=== PATIENT | male | born 1995 | race Two or more races ===

== ENCOUNTER 2023-11-21 11:38 | Inpatient (IN) ==
[2023-11-21] MEDS ORDERED: Lactated Ringers 1000 ml BAG 1,000 ML IV ONE (13:08)
[2023-11-21 13:34] LABS: ABS Lymphocytes 0.6 10^3/uL (1.0-4.8); ABS Monocytes 0.8 10^3/uL (0.0-1.1); ABS Neutrophils 7.6 10^3/uL (1.5-7.6); ABS Nucleated RBC 0.01 10^3/ul; Eosinophil % 0.4 %; Hematocrit 37.6 % (38-53); Lymphocyte % 6.3 %; Mean Corpuscular Hemoglobin 29.1 pg (27-33); Mean Corpuscular Hgb Conc 34.5 g/dL (31-36); Mean Corpuscular Volume 84.4 fL (80-97); Mean Platelet Volume 9.4 fL (7.5-11.2); Nucleated Red Blood Cells % 0.2 %/100WBC (0.0-0.8); Platelet Count 189 10^3/uL (150-450); Red Blood Count 4.45 10^6/uL (4.06-5.63); Red Cell Distribution Width 13.3 % (12-17); White Blood Count 8.9 10^3/uL (3.6-10.2)
[2023-11-21 13:57] LABS: Albumin 4.4 g/dL (3.2-5.2); Albumin/Globulin Ratio 1.1 (1-3); C Reactive Protein 208.28 mg/L (<8.01); Calcium 9.2 mg/dL (8.6-10.3); Creatinine, Serum 1.02 mg/dL (0.67-1.17); Globulin 3.9 g/dL (2-4); Potassium 3.6 mmol/L (3.5-5.0); Total Bilirubin 0.9 mg/dL (0.2-1.0); Total Protein 8.3 g/dL (6.4-8.9); eGFR CKD-EPI 101.4 (>60)
[2023-11-21 14:00] LABS: Activated Partial Thrombo Time 32.4 seconds (26.0-38.0); INR 1.16 (0.83-1.13)
[2023-11-21] MEDS ORDERED: Iohexol 350 (CONTRAST) 500 ML MDV IV ONE (14:49)
[2023-11-21 15:30] LABS: High Sensitivity Troponin 1 Hr 4 pg/mL (<20)
[2023-11-21] MEDS ORDERED: cefTRIAXone 1 gm/50 mL D5W 1 GM/50 ML BAG IV ONE (17:43)
[2023-11-21] MEDS ORDERED: Azithromycin 500 mg/250 ml NS 500 MG/250 ML BAG IVPB ONE (17:43)
[2023-11-21] MEDS ORDERED: Morphine 4 MG/ML VIAL (1 ml) IV ONE (17:43)
[2023-11-21] MEDS ORDERED: Al Hydrox/Mg Hydrox/Simet LIQ 30 ML UDC PO PRN (19:16)
[2023-11-21 20:06] LABS: Urine Appearance Clear; Urine Bilirubin Negative (Negative); Urine Blood 2+ (Negative); Urine Color Yellow; Urine Glucose Negative (Negative); Urine Ketones Negative (Negative); Urine Nitrite Negative (Negative); Urine Protein Negative (Negative); Urine Urobilinogen Negative (Negative)
[2023-11-21 20:20] LABS: Urine Bacteria Absent (Absent); Urine Red Blood Cell 1+(3-5/hpf) (Absent); Urine White Blood Cell Trace(0-5/hpf) (Absent)
[2023-11-21] MEDS ORDERED: Lidocaine PATCH 4% TOPICAL ONE (20:36)
[2023-11-21 21:28] LABS: Urine Specific Gravity > 1.060 (1.002-1.030)
[2023-11-21] MEDS ORDERED: Vancomycin 1,000 MG in NS 0.9% 250 ml 250 ML IVPB ONE (22:18)
[2023-11-21] MEDS ORDERED: Vancomycin per Pharmacy 1 EA NOTE FOLLOW UP SCH (23:00)
[2023-11-21] MEDS: Morphine 2 MG/ML SYRINGE IV PRN (23:25)
[2023-11-22] MEDS: Morphine 2 MG/ML SYRINGE IV PRN ×4 (04:03→19:10)
[2023-11-22 06:49] LABS: ABS Eosinophils 0.1 10^3/uL (0.0-0.5); ABS Lymphocytes 0.7 10^3/uL (1.0-4.8); ABS Monocytes 0.8 10^3/uL (0.0-1.1); ABS Neutrophils 7.4 10^3/uL (1.5-7.6); Hematocrit 35.8 % (38-53); Hemoglobin 12.2 g/dL (13.2-16.3); Lymphocyte % 8.1 %; Mean Corpuscular Hemoglobin 28.7 pg (27-33); Mean Corpuscular Volume 84.6 fL (80-97); Mean Platelet Volume 9.4 fL (7.5-11.2); Platelet Count 175 10^3/uL (150-450); Red Blood Count 4.23 10^6/uL (4.06-5.63); Red Cell Distribution Width 13.3 % (12-17)
[2023-11-22 07:13] LABS: Calcium 8.6 mg/dL (8.6-10.3); Creatinine, Serum 1.1 mg/dL (0.67-1.17); Potassium 3.6 mmol/L (3.5-5.0); eGFR CKD-EPI 92.6 (>60)
[2023-11-22] MEDS ORDERED: Vancomycin 1000 MG in NS 0.9% 250 ML IVPB SCH (07:30)
[2023-11-22] MEDS ORDERED: Potassium EFFERVES 25 meq TAB PO ONE (07:38)
[2023-11-22] MEDS: cefTRIAXone 1 gm/50 mL D5W 1 GM/50 ML BAG IV SCH (17:31)
[2023-11-22] MEDS ORDERED: Magnesium Hydroxide LIQ 30 ML UDC PO PRN (19:32)
[2023-11-22] MEDS ORDERED: Senna TAB 8.6 mg TAB PO PRN (19:32)
[2023-11-22] MEDS ORDERED: Polyethylene Glycol 3350 17 GM PACKET PO PRN (19:32)
[2023-11-23] MEDS ORDERED: Vancomycin Trough Check NOTE FOLLOW UP ONE (07:00)
[2023-11-23 08:58] LABS: ABS Eosinophils 0.2 10^3/uL (0.0-0.5); ABS Lymphocytes 0.8 10^3/uL (1.0-4.8); ABS Monocytes 0.8 10^3/uL (0.0-1.1); ABS Neutrophils 5.4 10^3/uL (1.5-7.6); Hematocrit 36.7 % (38-53); Hemoglobin 12.4 g/dL (13.2-16.3); Lymphocyte % 11.6 %; Mean Corpuscular Hemoglobin 28.7 pg (27-33); Mean Corpuscular Hgb Conc 33.9 g/dL (31-36); Mean Corpuscular Volume 84.6 fL (80-97); Mean Platelet Volume 8.9 fL (7.5-11.2); Platelet Count 215 10^3/uL (150-450); Red Blood Count 4.33 10^6/uL (4.06-5.63); Red Cell Distribution Width 12.9 % (12-17); White Blood Count 7.3 10^3/uL (3.6-10.2)
[2023-11-23 09:13] LABS: Calcium 9.1 mg/dL (8.6-10.3); Magnesium 1.9 mg/dL (1.9-2.7); eGFR CKD-EPI 103.8 (>60)
[2023-11-23] MEDS ORDERED: Lactated Ringers 1000 ml BAG 1,000 ML IV ONE (12:12)
[2023-11-23] MEDS: cefTRIAXone 1 gm/50 mL D5W 1 GM/50 ML BAG IV SCH (16:57)
[2023-11-23] MEDS ORDERED: Lactated Ringers 1000 ml BAG 1,000 ML IV SCH ×2 (17:00)
[2023-11-23] MEDS ORDERED: Acetaminophen IV 1 GM/100ML 1,000 MG/100 ML BAG IV SCH (17:00)
[2023-11-24 05:52] LABS: ABS Eosinophils 0.3 10^3/uL (0.0-0.5); ABS Lymphocytes 0.6 10^3/uL (1.0-4.8); ABS Monocytes 0.7 10^3/uL (0.0-1.1); ABS Neutrophils 3.2 10^3/uL (1.5-7.6); ABS Nucleated RBC 0.01 10^3/ul; Eosinophil % 6.7 %; Hematocrit 34.5 % (38-53); Lymphocyte % 12.8 %; Mean Corpuscular Hemoglobin 29.4 pg (27-33); Mean Corpuscular Hgb Conc 34.8 g/dL (31-36); Mean Corpuscular Volume 84.5 fL (80-97); Mean Platelet Volume 8.8 fL (7.5-11.2); Nucleated Red Blood Cells % 0.1 %/100WBC (0.0-0.8); Platelet Count 195 10^3/uL (150-450); Red Blood Count 4.08 10^6/uL (4.06-5.63); Red Cell Distribution Width 13.2 % (12-17); White Blood Count 4.8 10^3/uL (3.6-10.2)
[2023-11-24 06:10] LABS: Calcium 8.7 mg/dL (8.6-10.3); Magnesium 2.1 mg/dL (1.9-2.7); Potassium 3.9 mmol/L (3.5-5.0); eGFR CKD-EPI 103.8 (>60)
[2023-11-24] MEDS ORDERED: Potassium Chlor 10 meq TAB PO ONE (07:32)
[2023-11-24 10:05] VITALS: BP 111/76
== END 2023-11-24 14:39 | disposition home or self-care (01) | DRG 194 ==
LOC: EDHOLD 11:38 → ED 11:38 → SUATTDRO 18:39 → MED 20:13
PROVIDERS: ADMIT Internal Medicine; ATTEND Hospitalist